=== PATIENT | male | born 1955 | race Caucasian/White ===

== ENCOUNTER 2018-03-20 14:32 | Emergency (ER) | payer MEDICARE ==
[2018-03-20] MEDS ORDERED: Sodium Chloride For Inhalation 0.9% 3 ML NEB ONE (15:14)
[2018-03-20] MEDS ORDERED: Dexamethasone 10 MG/ML VIAL ONE (15:32)
[2018-03-20] MEDS ORDERED: Azithromycin 250 MG TAB ONE (15:32)
--- NOTE | 2018-03-20 15:44 | RAD ---
PA AND LATERAL CHEST: HISTORY: Cough. FINDINGS: The heart size is normal. The lungs are well expanded without focal areas of consolidation, pneumoth orax, or pleural effusions. There are postop changes in the cervical spine. IMPRESSION: No acute process. POS: [facility]
== END 2018-03-20 15:48 | disposition home or self-care (01) ==
LOC: SCSER 14:32
DX: J20.9 Acute bronchitis, unspecified (principal); E11.9 Type 2 diabetes mellitus without complications; K21.9 Gastro-esophageal reflux disease without esophagitis; E78.5 Hyperlipidemia, unspecified; I10 Essential (primary) hypertension; G20 Parkinson's disease; Z79.899 Other long term (current) drug therapy; Z79.82 Long term (current) use of aspirin; Z79.84 Long term (current) use of oral hypoglycemic drugs
CPT/HCPCS: 71046; 96372; J1100; J7620

== ENCOUNTER 2018-10-07 17:10 | Emergency (ER) | payer MEDICARE ==
[~2018-10-07 17:10] MED LIST: Iopamidol 370 76% 100 ML VIAL ONE
[2018-10-07 17:59] LABS: #Basophils 0.1 thou/uL (0.0-0.2); #Eosinphils 0.2 thou/uL (0.0-0.7); #Lymphocytes 1.5 thou/uL (1.20-3.40); #Monocytes 0.6 thou/uL (0.11-0.59); #Neutrophils 5.5 thou/uL (1.40-6.50); %Basophils 0.7 % (0.0-1.0); %Eosinophils 2.3 % (0.0-10.0); %Lymphocytes 19.1 % (21.0-51.0); %Monocytes 7.7 % (0.0-10.0); %Neutrophils 70.2 % (42.0-75.0); Hemoglobin 11.6 g/dL (14.0-18.0); Mean Corpuscular HGB CONC 32.5 g/dL (32.0-36.0); Mean Corpuscular Hemoglobin 26.9 pg (27.0-31.0); Mean Corpuscular Volume 82.8 fL (78.0-98.0); Mean Platelet Volume 8.8 fL (7.4-10.4); Platelet Count 193 thou/uL (130-400); RBC Distribution Width 14.2 % (11.5-14.5); Red Blood Cell (RBC) Count 4.33 mill/uL (4.70-6.10); White Blood Cell (WBC) Count 7.8 thou/uL (4.8-10.8)
[2018-10-07 18:13] LABS: ALT (SGPT) Less than 6 U/L (8-55); AST (SGOT) 15 U/L (5-34); Albumin 4.1 g/dL (3.4-4.8); Alkaline Phosphatase 66 U/L (40-150); Anion Gap 15 mmol/L (10-20); BUN (Urea Nitrogen) 24 mg/dL (8.4-25.7); Bilirubin, Total 0.3 mg/dL (0.2-1.2); CK (CPK) 86 U/L (30-200); Calc. Creatinine Clearance 0 mL/min (70-130); Calcium 9.4 mg/dL (7.8-10.44); Carbon Dioxide 30 mmol/L (23-31); Chloride 99 mmol/L (98-107); Estimated GFR-MDRD 69; Globulin 3.3 g/dL (2.4-3.5); Glucose 86 mg/dL (80-115); Lipase 31 U/L (8-78); Potassium 3.7 mmol/L (3.5-5.1); Protein, Total 7.4 g/dL (5.8-8.1); Sodium 140 mmol/L (136-145)
[2018-10-07] MEDS ORDERED: Ketorolac Tromethamine 30 MG/ML VIAL ONE (18:27)
--- NOTE | 2018-10-07 18:49 | RAD ---
XR Hand Lt 3 View STANDARD: 10/07/2018 5:32 PM CLINICAL INDICATION: Injury, pain COMPARISON: None. FINDINGS: Fracture:No fracture. 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 Additional scattered osteoarthritis is pres ent. Incidental findings:None of significance. IMPRESSION: 1. No acute osseous abnormality.
--- NOTE | 2018-10-07 18:59 | CT ---
CT ABDOMEN AND PELVIS WITH CONTRAST: CT THORACIC SPINE WITH CONTRAST: CT LUMBAR SPINE WITH CONTRAST: 3D VOLUME RENDERING: HISTORY: Fall with injury and pain. COMPARISON: None. FINDINGS: No consolidation or contusion. Punctate subpleural nodule of the lateral right upper lobe measures 4 mm. Incidental bleb of the left upper lobe. No pleural effusion. No pneumothorax. No adenopathy. No acute process of the mediastinal structures. Liver: Unremarkable. Gallbladder: Unremarkable. Pancreas: Unremarkable Spleen: Punctate hypoattenuation, too small to further characterize Adrenal glands: Unremarkable. Kidneys: No renal calculus or acute obstruction. Right renal cysts are present, and there are ad ditional right renal parenchymal hypodensities, too small to further characterize. Bowel: Incompletely assessed without enteric contrast. Urinary Bladder: Incompletely distended with bladder wall prominence. Adenopathy: No adenopathy within the abdomen or pelvis. Free Air: No free air. Ascites: No ascites. Osseous structures: No acute osseous abnormalities. IMPRESSION: 1. No acute posttraumatic sequela. 2. Additional details are described above. Transcribed Date/Time: 10/07/2018 7:59 PM
--- NOTE | 2018-10-10 15:05 | EKG ---
Test Reason : Blood Pressure : / mmHG Vent. Rate : 073 BPM Atrial Rate : 073 BPM P-R Int : 188 ms QRS Dur : 088 ms QT Int : 394 ms P-R-T Axes : 057 -10 024 degrees QTc Int : 434 ms Normal sinus rhythm Normal ECG Confirmed by ANIKET MATTA ([id number]), medical transcription editor JUANA CACERES ([id number]) on 10/10/2018 3:04:49 PM Referred By: Confirmed By:ANIKET MATTA
== END 2018-10-07 19:19 | disposition home or self-care (01) ==
LOC: SCSER 17:10
DX: S20.212A Contusion of left front wall of thorax, initial encounter (principal); S60.222A Contusion of left hand, initial encounter; I10 Essential (primary) hypertension; E11.9 Type 2 diabetes mellitus without complications; K21.9 Gastro-esophageal reflux disease without esophagitis; E78.5 Hyperlipidemia, unspecified; Z79.82 Long term (current) use of aspirin; Z79.84 Long term (current) use of oral hypoglycemic drugs; W18.30XA Fall on same level, unspecified, initial encounter
CPT/HCPCS: 71260; 74177; 80053; 82550; 83690; 84484; 85025; 93005; 96374; J1885; Q9967